=== PATIENT | male | born 1955 | race Caucasian/White ===

== ENCOUNTER 2019-02-27 14:48 | Inpatient (IN) | payer MEDICARE, OTHER ==
[~2019-02-27] VITALS: Ht 182.9 cm; Wt 85.7 kg
[2019-03-06 12:40] VITALS: BP 162/80
== END 2019-03-06 18:43 | disposition home health service (06) | DRG 682 ==
LOC: ED 16:54 → EDIP 16:55 → ED 18:47 → CCU 18:51 → 4WST 03-01 15:41
PROVIDERS: ADMIT Internal Medicine; ATTEND Internal Medicine
PROC: 30233N1 Transfusion of Nonautologous Red Blood Cells into Peripheral Vein, Percutaneous Approach (ICD-10-PCS; principal; 2019-02-28)
PROC: 0T9B70Z Drainage of Bladder with Drainage Device, Via Natural or Artificial Opening (ICD-10-PCS; 2019-02-28)
PROC: 0TB13ZX Excision of Left Kidney, Percutaneous Approach, Diagnostic (ICD-10-PCS; 2019-02-28)
PROC: 0W993ZZ Drainage of Right Pleural Cavity, Percutaneous Approach (ICD-10-PCS; 2019-03-03)
DX: N17.0 Acute kidney failure with tubular necrosis (principal); J96.01 Acute respiratory failure with hypoxia; I50.31 Acute diastolic (congestive) heart failure; I13.2 Hypertensive heart and chronic kidney disease with heart failure and with stage 5 chronic kidney disease, or end stage renal disease; E87.2 Acidosis; I69.354 Hemiplegia and hemiparesis following cerebral infarction affecting left non-dominant side; N18.5 Chronic kidney disease, stage 5; E11.21 Type 2 diabetes mellitus with diabetic nephropathy; E11.22 Type 2 diabetes mellitus with diabetic chronic kidney disease; E87.5 Hyperkalemia; E83.39 Other disorders of phosphorus metabolism; D63.8 Anemia in other chronic diseases classified elsewhere; I45.9 Conduction disorder, unspecified; E78.5 Hyperlipidemia, unspecified; D70.9 Neutropenia, unspecified; E87.8 Other disorders of electrolyte and fluid balance, not elsewhere classified; I27.20 Pulmonary hypertension, unspecified; F17.210 Nicotine dependence, cigarettes, uncomplicated; Z79.4 Long term (current) use of insulin; Z82.0 Family history of epilepsy and other diseases of the nervous system; Z79.899 Other long term (current) drug therapy
CPT/HCPCS: 32555; 36415; 36430; 50200; 71045; 71250; 76770; 77012; 80048; 80053; 80069; 80074; 81001; 82040; 82306; 82436; 82570; 82728; 82945; 82962; 83036; 83520; 83540; 83550; 83605; 83615; 83735; 83880; 83970; 84132; 84133; 84155; 84156; 84157; 84165; 84300; 84443; 84484; 85025; 85610; 86038; 86039; 86160; 86162; 86256; 86850; 86900; 86923; 87040; 87070; 87081; 87086; 87205; 87324; 88300; 89051; 93005; 93306; 96374; 96375; 99156; 99157; G0378; J1644; J1940; J2930; J3010; G0365; J1815; J2310; J7512; P9016

== ENCOUNTER 2019-12-15 06:26 | Day surgery (SDC) | payer MEDICARE ==
[~2019-12-15] VITALS: Ht 182.9 cm; Wt 72.0 kg
[~2019-12-15 06:26] MED LIST: AMLO10TA8 PO; ASPI-496 PO; ATOR-2 PO; BENZ-17 PO; BUPR75TA6 PO; CELE200C PO; CLON0.1T22 PO; ERGO500017 PO; ESCI20TA PO; FURO-93 PO; FURO80TA3 PO; HUM100VI5 SQ; HYDR-3343 PO; INSU100I11 SQ-INSULIN; MULT1TAB77 PO; PRED10TA PO; SEVE800T28 PO; SODI650T PO
[2019-12-15] MEDS ORDERED: HEPARIN 1,000 UNITS/ML, 10ML ONE (06:55)
[2019-12-15 07:08] VITALS: BP 140/75
[2019-12-15] MEDS ORDERED: BENZ-17 PO (07:15)
[2019-12-15] MEDS ORDERED: MULT-797 PO (07:15)
[2019-12-15] MEDS ORDERED: ASPI-496 PO (07:15)
[2019-12-15] MEDS ORDERED: AMLO10TA8 PO (07:15)
[2019-12-15] MEDS ORDERED: ATOR-2 PO (07:15)
[2019-12-15] MEDS ORDERED: ALBU8.5H8 INH (07:15)
[2019-12-15] MEDS ORDERED: FURO80TA3 PO (07:15)
[2019-12-15] MEDS ORDERED: HYDR-3343 PO (07:23)
[2019-12-15] MEDS ORDERED: CLON-275 PO (07:23)
[2019-12-15] MEDS ORDERED: SODIUM CHLORIDE 0.9% 1,000 ML IV SCH (07:30)
[2019-12-15] MEDS ORDERED: CHLORHEXIDINE 15 ML UDC MM ONE (07:30)
[2019-12-15] MEDS ORDERED: LIDOCAINE-MPF 1%, 2ML INFIL ONE (07:30)
[2019-12-15] MEDS ORDERED: FENTANYL PF 250 MCG/5ML ONE (08:58)
[2019-12-15] MEDS ORDERED: CEFAZOLIN 1,000 MG ONE (09:07)
[2019-12-15] MEDS ORDERED: DEXAMETHASONE 4 MG/ML, 1ML ONE ×2 (09:07→09:50)
[2019-12-15] MEDS ORDERED: ONDANSETRON 2MG/ML, 2ML ONE ×2 (09:07→09:50)
[2019-12-15] MEDS ORDERED: SUCCINYLCHOLINE 20 MG/ML, 10ML ONE (09:51)
[2019-12-15] MEDS ORDERED: ROCURONIUM 10MG/ML,5ML ONE (09:51)
[2019-12-15] MEDS ORDERED: PROPOFOL 10 MG/ML, 20ML ONE (09:51)
[2019-12-15] MEDS ORDERED: SUGAMMADEX 200 MG/2 ML IVPush ONE (09:51)
[2019-12-15] MEDS ORDERED: HALOPERIDOL 5 MG/ML IV PRN (10:00)
[2019-12-15] MEDS ORDERED: MIDAZOLAM 1 MG/ML, 2ML IV PRN (10:00)
[2019-12-15] MEDS ORDERED: LABETALOL 5MG/ML, 20ML IV PRN (10:00)
[2019-12-15] MEDS ORDERED: hydrALAzine 20 MG/ML, 1ML IV PRN (10:00)
[2019-12-15] MEDS ORDERED: FENTANYL PF 100 MCG/2ML IV PRN (10:00)
[2019-12-15] MEDS ORDERED: ACETAMINOPHEN 325 MG TABLET PO PRN (10:00)
[2019-12-15] MEDS ORDERED: PROMETHAZINE 25 MG/ML, 1ML IV PRN (10:00)
[2019-12-15] MEDS ORDERED: OXYcodone 5 MG/5 ML ORAL.SOL UDC PO PRN (10:00)
[2019-12-15] MEDS ORDERED: ONDANSETRON 2MG/ML, 2ML IV PRN (10:00)
[2019-12-15] MEDS ORDERED: ONDANSETRON ODT 8 MG PO PRN (10:00)
[2019-12-15] MEDS ORDERED: ALBUTEROL SULFATE 2.5 MG/3 ML NPPB PRN (10:00)
[2019-12-15] MEDS ORDERED: HYDROmorphone 2 MG/ML, 1ML IVPush PRN (10:00)
[2019-12-15] MEDS ORDERED: EPHEDRINE 50 MG/ML, 1ML IVPush PRN (10:00)
[2019-12-15] MEDS ORDERED: DIAZEPAM 5 MG/ML, 2ML IVPush PRN (10:00)
[2019-12-15] MEDS ORDERED: MEPERIDINE/PF 25MG/ML,1ML IVPush PRN (10:00)
[2019-12-15] MEDS ORDERED: PROMETHAZINE 12.5 MG SUPP PR PRN (10:00)
== END 2019-12-15 11:45 | disposition home or self-care (01) ==
LOC: OUT 06:26
PROVIDERS: ATTEND Surgery Vascular Surgery
DX: E11.22 Type 2 diabetes mellitus with diabetic chronic kidney disease (principal); I12.0 Hypertensive chronic kidney disease with stage 5 chronic kidney disease or end stage renal disease; N18.6 End stage renal disease; E78.5 Hyperlipidemia, unspecified; F03.90 Unspecified dementia, unspecified severity, without behavioral disturbance, psychotic disturbance, mood disturbance, and anxiety; Z79.4 Long term (current) use of insulin; Z79.82 Long term (current) use of aspirin; Z79.899 Other long term (current) drug therapy; Z99.3 Dependence on wheelchair
CPT/HCPCS: 36821; 80047; 82962; 93005; J0330; J0690; J1100; J1644; J2405; J2704; J3010; J7030